=== PATIENT | male | born 1975 | race Asian ===

== ENCOUNTER 2021-11-11 16:10 | Emergency (ER) | payer OTHER ==
[~2021-11-11] VITALS: Ht 167.6 cm; Wt 64.9 kg
[2021-11-11 16:34] VITALS: BP 127/79
--- NOTE | 2021-11-11 16:45 | NUR ---
PT TAKEN TO BED 1.
[2021-11-11] MEDS ORDERED: LIDOCAINE 5% 1 EA PATCH TP SCH (17:10)
[2021-11-11] MEDS ORDERED: MORPHINE SULFATE 4 MG/ML SYR IM ONE (17:10)
[2021-11-11] MEDS ORDERED: IBUPROFEN 800 MG TAB PO ONE (17:10)
[2021-11-11] MEDS ORDERED: DICYCLOMINE HCL LIQUID 20 MG, ALUMINUM HYD/MAG/SIMETHICONE 30 ML, LIDOCAINE VISCOUS 2% ... PO ONE ×3 (18:10)
[2021-11-11] MEDS ORDERED: ALUMINUM HYD/MAG/SIMETHICONE 30 ML UDC ONE (18:14)
[2021-11-11] MEDS ORDERED: DICYCLOMINE HCL LIQUID 10 MG/5 ML UDC ONE (18:14)
[2021-11-11] MEDS ORDERED: IBUP-2213 PO (18:17)
[2021-11-11] MEDS ORDERED: KETOROLAC 30 MG/ML VIAL IM ONE (18:20)
[2021-11-11] MEDS ORDERED: MORPHINE SULFATE 4 MG/ML SYR IVP ONE (18:55)
--- NOTE | 2021-11-11 19:24 | NUR ---
PT REPORTS FEELING BETTER PAIN 3/10 REFUSING PAIN MEDICATION. NO OTHER COMPLAINTS/SYMPTOMS. PT LAYING IN BED LOCKED IN LOWEST POSITION W X1 SIDERAIL UP. BREATHING EVEN AND UNLABORED. WILL CONTINUE TO MONITOR.
[2021-11-11] MEDS ORDERED: CYCLOBENZAPRINE 10 MG TAB PO ONE (19:40)
--- NOTE | 2021-11-11 20:35 | NUR ---
PT HAS ONGOING PAIN TO L SHOULDER REPORTS FEELING BETTER HAS INCREASED ROM TO L SHOULDER BUT STILL LIMITED D/T PAIN. PT DENIES ABDOMINAL AT THIS TIME, HAS NOT HAD ANY ABDOMINAL PAIN SINCE MEDICATED.
--- NOTE | 2021-11-11 20:35 | NUR ---
Wyatt dominguez in [facility] - 11/11/21 at 2057 by [email or web address] PT HAS ONGOING PAIN TO R SHOULDER REPORTS FEELING BETTER HAS INCREASED ROM TO L SHOULDER BUT STILL LIMITED D/T PAIN. PT DENIES ABDOMINAL AT THIS TIME, HAS NOT HAD ANY ABDOMINAL PAIN SINCE MEDICATED.
--- NOTE | 2021-11-11 20:45 | NUR ---
PER ERMD SIN NO LABS NEEDED FOR PT TO HAVE CT W IV CONTRAST.
[2021-11-11] MEDS ORDERED: NACL 0.9% 1,000 ML IV ONE (21:10)
--- NOTE | 2021-11-11 21:28 | NUR ---
PT REPORTS L SHOULDER FELING MUCH BETTER PAIN ONLY PRESENT W MOVEMENT. NO ABDOMINAL PAIN.
[2021-11-11] MEDS ORDERED: ACET-10509 PO (22:35)
[2021-11-11 22:50] VITALS: BP 111/74
--- NOTE | 2021-11-11 22:50 | NUR ---
Patient discharged with v/s stable. Written and verbal after care instructions given and explained. Patient alert, oriented and verbalized understanding of instructions. Ambulatory with steady gait. All questions addressed prior to discharge. ID band removed. Patient advised to follow up with PMD. Rx of acetaminophen, ibuprofen given. Patient educated on indication of medication including possible reaction and side effects. Opportunity to ask questions provided and answered.
== END 2021-11-11 22:50 | disposition home or self-care (01) ==
LOC: MED 16:10
DX: S00.03XA Contusion of scalp, initial encounter (principal); S46.002A Unspecified injury of muscle(s) and tendon(s) of the rotator cuff of left shoulder, initial encounter; R10.9 Unspecified abdominal pain; Z79.899 Other long term (current) drug therapy; V89.2XXA Person injured in unspecified motor-vehicle accident, traffic, initial encounter; Y93.89 Activity, other specified; Y92.89 Other specified places as the place of occurrence of the external cause; Y99.8 Other external cause status
CPT/HCPCS: 70450; 71046; 71260; 73030; 74177; 90471; 90715; 96361; 96372; 99285; J1885; J2270; Q9967; J7030